=== PATIENT | female | born 1960 | race Caucasian/White ===

== ENCOUNTER → 2021-08-14 | Outpatient (CLI) | payer OTHER | END | disposition home or self-care (01) | LOC: COVID19 16:47 | PROVIDERS: ATTEND Podiatrist Foot & Ankle Surgery | DX: Z11.52 Encounter for screening for COVID-19 (principal) ==

== ENCOUNTER 2021-10-10 10:59 | Inpatient (IN) | payer SELFPAY ==
[~2021-10-10] VITALS: Ht 162.5 cm; Wt 68.0 kg
[2021-10-10 11:07] VITALS: BP 145/90
[2021-10-10 11:35] LABS: BASO # 0.1 10*3/uL (0.0-0.1); BASO % 0.7 % (0.0-1.0); EOS # 0.2 10*3/uL (0.0-0.4); EOS % 2.7 % (1.0-4.0); HEMATOCRIT 38.5 % (37.0-47.0); LYMPH # 1.4 10*3/uL (1.3-4.4); LYMPH % 19.2 % (27.0-41.0); MEAN CELL VOLUME 86.5 fl (81.0-99.0); MEAN CORPUSCULAR HGB 26.5 pg (27.0-31.0); MEAN CORPUSCULAR HGB CONC 30.6 g/dl (33.0-37.0); MEAN PLATELET VOLUME 10.3 fl (9.6-12.3); MONO # 0.6 10*3/uL (0.1-1.0); MONO % 7.8 % (3.0-9.0); NEUT # 5.1 10*3/uL (2.3-7.9); NEUT % 69.3 % (47.0-73.0); PLATELET COUNT AUTOMATED 287 10*3/uL (130-400); RED BLOOD COUNT 4.45 10*6/uL (4.10-5.10); RED CELL DISTRI WIDTH 13.5 % (0-14.5); WHITE BLOOD COUNT 7.3 10*3/uL (4.8-10.8)
[2021-10-10 11:45] LABS: ACT PARTIAL THROMBO TIME 27.8 SECONDS (20.0-32.1)
[2021-10-10 11:53] LABS: ALBUMIN 3.4 gm/dl (3.1-4.5); ALKALINE PHOSPHATASE 103 U/L (45-117); BUN 46 mg/dl (7-24); CHLORIDE 111 mmol/L (98-107); CREATININE 2.22 mg/dL (0.55-1.02); LIPASE 249 U/L (73-393); SGOT/AST 18 IU/L (3-35); SGPT/ALT 17 U/L (12-78); SODIUM 138 mmol/L (136-145); TOTAL PROTEIN 7.2 gm/dL (6.4-8.2)
[2021-10-10 19:34] VITALS: BP 137/62
[2021-10-10 20:43] VITALS: BP 133/65
[2021-10-10 21:25] VITALS: BP 112/78
[2021-10-11] VITALS (7 sets, daily range): BP systolic 118–172; BP diastolic 61–94
[2021-10-11 06:36] LABS: BASO # 0.1 10*3/uL (0.0-0.1); BASO % 0.8 % (0.0-1.0); EOS # 0.3 10*3/uL (0.0-0.4); EOS % 4.3 % (1.0-4.0); HEMATOCRIT 35.1 % (37.0-47.0); LYMPH # 1.7 10*3/uL (1.3-4.4); LYMPH % 26.5 % (27.0-41.0); MEAN CELL VOLUME 87.1 fl (81.0-99.0); MEAN CORPUSCULAR HGB 26.6 pg (27.0-31.0); MEAN CORPUSCULAR HGB CONC 30.5 g/dl (33.0-37.0); MEAN PLATELET VOLUME 9.8 fl (9.6-12.3); MONO # 0.6 10*3/uL (0.1-1.0); MONO % 8.5 % (3.0-9.0); NEUT # 3.9 10*3/uL (2.3-7.9); NEUT % 59.7 % (47.0-73.0); PLATELET COUNT AUTOMATED 248 10*3/uL (130-400); RED BLOOD COUNT 4.03 10*6/uL (4.10-5.10); RED CELL DISTRI WIDTH 13.6 % (0-14.5); WHITE BLOOD COUNT 6.6 10*3/uL (4.8-10.8)
[2021-10-11 06:45] LABS: ACT PARTIAL THROMBO TIME 28.8 SECONDS (20.0-32.1)
[2021-10-11 06:55] LABS: ALBUMIN 2.8 gm/dl (3.1-4.5)
[2021-10-11 07:04] LABS: CREATININE 1.9 mg/dL (0.55-1.02); FREE T4 0.96 ng/dl (0.76-1.46); THYROID STIM HORMONE (HS) 1.35 uIU/ml (0.358-4.75); TOTAL PROTEIN 6.2 gm/dL (6.4-8.2)
[2021-10-11 07:25] LABS: POTASSIUM 4.7 mmol/L (3.5-5.1)
[2021-10-11 10:51] LABS: VITAMIN D, 25-HYDROXY 19.2 ng/mL (30-100)
[2021-10-11] MEDS ORDERED: ASPIRIN CHILDRE81 MG PO (11:12)
[2021-10-11] MEDS ORDERED: ATORVASTATIN CA80 M1 PO (11:12)
[2021-10-11] MEDS ORDERED: VITAMIN D350 MC2 PO (11:14)
[2021-10-11] MEDS ORDERED: NORVASC2.5 MG PO (12:48)
[2021-10-12] VITALS: BP 157/61
[2021-10-12 04:00] VITALS: BP 140/78
[2021-10-12 06:57] LABS: BASO # 0.1 10*3/uL (0.0-0.1); BASO % 0.6 % (0.0-1.0); EOS # 0.2 10*3/uL (0.0-0.4); EOS % 2.6 % (1.0-4.0); HEMATOCRIT 34.7 % (37.0-47.0); LYMPH # 2.2 10*3/uL (1.3-4.4); LYMPH % 25.1 % (27.0-41.0); MEAN CELL VOLUME 86.3 fl (81.0-99.0); MEAN CORPUSCULAR HGB 26.4 pg (27.0-31.0); MEAN CORPUSCULAR HGB CONC 30.5 g/dl (33.0-37.0); MEAN PLATELET VOLUME 10.6 fl (9.6-12.3); MONO # 0.8 10*3/uL (0.1-1.0); MONO % 9.1 % (3.0-9.0); NEUT # 5.5 10*3/uL (2.3-7.9); NEUT % 62.4 % (47.0-73.0); PLATELET COUNT AUTOMATED 261 10*3/uL (130-400); RED BLOOD COUNT 4.02 10*6/uL (4.10-5.10); RED CELL DISTRI WIDTH 13.5 % (0-14.5); WHITE BLOOD COUNT 8.8 10*3/uL (4.8-10.8)
[2021-10-12 07:05] LABS: CREATININE 1.96 mg/dL (0.55-1.02); POTASSIUM 4.5 mmol/L (3.5-5.1)
[2021-10-12 08:00] VITALS: BP 145/70
[2021-10-12 12:00] VITALS: BP 133/61
== END 2021-10-12 14:48 | disposition home or self-care (01) | DRG 683 ==
LOC: ED 10:59 → EDHOLD 12:30 → 4E 18:06 → 5E 20:24
PROVIDERS: Emergency Medicine; Hospitalist; Student in an Organized Health Care Education/Training Program; ADMIT Family Medicine; ATTEND Family Medicine
DX: N17.0 Acute kidney failure with tubular necrosis (principal); E44.0 Moderate protein-calorie malnutrition; D64.9 Anemia, unspecified; E87.5 Hyperkalemia; Z82.49 Family history of ischemic heart disease and other diseases of the circulatory system; Z86.73 Personal history of transient ischemic attack (TIA), and cerebral infarction without residual deficits; Z68.25 Body mass index [BMI] 25.0-25.9, adult

== ENCOUNTER 2023-09-02 16:03 | Emergency (ER) | payer MEDICARE ==
[~2023-09-02] VITALS: Ht 167.6 cm; Wt 61.2 kg
[~2023-09-02 16:03] MED LIST: ASPIRIN CHILDRE81 MG PO; ATORVASTATIN CA80 M1 PO; NORVASC2.5 MG PO; VITAMIN D350 MC2 PO
== END 2023-09-02 19:37 | disposition home or self-care (01) ==
LOC: ED 16:03
DX: S01.111A Laceration without foreign body of right eyelid and periocular area, initial encounter (principal); M79.641 Pain in right hand; Z79.899 Other long term (current) drug therapy; Z79.82 Long term (current) use of aspirin; Z98.890 Other specified postprocedural states; W01.198A Fall on same level from slipping, tripping and stumbling with subsequent striking against other object, initial encounter; Y93.89 Activity, other specified; Y92.89 Other specified places as the place of occurrence of the external cause; Y99.8 Other external cause status

== ENCOUNTER 2023-09-10 22:07 | Emergency (ER) | payer MEDICARE | END 2023-09-10 22:33 | disposition home or self-care (01) | LOC: ED 22:07 | DX: S01.111D Laceration without foreign body of right eyelid and periocular area, subsequent encounter (principal); Z98.890 Other specified postprocedural states; X58.XXXD Exposure to other specified factors, subsequent encounter ==